=== PATIENT | male | born 1975 | race Two or more races ===

== ENCOUNTER 2018-06-02 13:36 | Outpatient (CLI) | payer OTHER | END 2018-06-02 13:42 | disposition home or self-care (01) | LOC: SONOGRAMA 13:36 | DX: N50.89 Other specified disorders of the male genital organs (principal) ==

== ENCOUNTER 2021-09-19 08:00 | Outpatient (CLI) | payer OTHER | END 2021-09-19 08:30 | disposition home or self-care (01) | LOC: PPH VACUNA 08:00 | PROVIDERS: ATTEND Emergency Medicine Pediatric Emergency Medicine | DX: Z23 Encounter for immunization (principal) ==